=== PATIENT | male | born 1990 | race Caucasian/White ===

== ENCOUNTER → 2018-03-07 | Outpatient (CLI) | payer OTHER ==
--- NOTE | 2018-03-08 07:54 | CT ---
EXAM: Maxillofacial w/wo Contrast CLINICAL HISTORY: ACUTE MAXILLARY SINUSITIS COMPARISON STUDY: None TECHNICAL: Thin section pre and post axial CT images were obtained through the paranasal sinuses. Sagittal and coronal reconstructions were acquired. FINDINGS: The paranasal sinuses are normally formed. Mucosal thickening is present within the maxillary sinus to a depth of 4 mm. There is a small amount of fluid within the right maxillary sinus. The right ostiomeatal unit is occluded. There are operative changes in the medial wall of the right maxillary sinus and absence of the right middle turbinate. Moderate left middle turbinate ana lilia bullosa is present. A small mucosal retention cyst is present within the inferior aspect of the left maxillary sinus. There is minimal left maxillary sinus mucosal thickening and ostiomeatal unit is narrowed. Multiple right ethmoid air cells are opacified. Mucosal thickening is present within the right sinus. The nasal septum is deviated to the right and there is a right projecting nasal spur measures 3.6 mm. There is no fracture or acute osseous abnormality. The temporomandibular joints are in alignment. IMPRESSION: 1. Right maxillary, right ethmoid and right frontal sinusitis. 2. Right deviated nasal septum and a right projecting nasal spur. 3. Operative changes of the medial wall of the right maxillary sinus and middle turbinate. 4. 6 mm left maxillary sinus mucosal retention cyst. 5. Prominence of the bilateral tonsils with no low density of an abscess. Automated exposure control, Adjustment of mA and/or kV according to patient size, or iterative reconstruction techniques were used. Electronically signed by: Jorge Becker MD 03/08/2018 7:53 AM [facility]
== END ==
LOC: LAB.O 16:41
PROVIDERS: ATTEND Nurse Practitioner Family
DX: J01.00 Acute maxillary sinusitis, unspecified (principal); J34.2 Deviated nasal septum; J34.1 Cyst and mucocele of nose and nasal sinus; J34.89 Other specified disorders of nose and nasal sinuses